=== PATIENT | female | born 1955 | race Caucasian/White ===

== ENCOUNTER → 2022-03-04 09:53 | Day surgery (SDC) | payer MEDICARE, SELFPAY ==
--- NOTE | 2022-03-03 11:25 | P.CONAN_ITS ---
Documented by User: Anita Juarez NP 03/03/22 11:27 HPI - Anesthesia Eval Consult details Narrative: 66yo F for Colonoscopy Lovenox for hx PE and Right IJ thrombo Chemo [id number] for lung ca mets PMFSH Past Medical History Medical History Anxiety COVID-19 vaccine series completed Depression Elevated cholesterol GERD (gastroesophageal reflux disease) History of chemotherapy Hx of thrombosis Lung metastases Osteopenia Sleep apnea Surgical History Surgical History H/O colonoscopy History of esophagogastroduodenoscopy (EGD) History of low anterior resection of rectum Hx of hysterectomy Hx of reduction mammoplasty Social History Social History Patient Tobacco Use Status: Former Tobacco user Quit Date: age 19's Tobacco use type: Cigarette Are you DNR?: No Advance Directives: No Advance Directives Information Provided: Yes Nutrition Risks: No Nutritional Risk Meds Allergies Allergy/AdvReac Type Severity Reaction Status Date / Time apixaban [From Eliquis] AdvReac Unknown Verified 03/04/22 11:33 Home Medications Medication Instructions Recorded Confirmed Last Taken Type bupropion HCl 300 mg 24 hr tablet, 300 mg PO QAM 03/26/21 03/04/22 03/03/22 History extended release enoxaparin 60 mg/0.6 mL 60 mg subcut DAILY 03/26/21 03/04/22 03/03/22 History subcutaneous syringe lorazepam 0.5 mg tablet 0.5 mg PO BEDTIME PRN Anxiety 03/26/21 03/04/22 03/03/22 History omeprazole 20 mg capsule,delayed 20 mg PO DAILY 03/26/21 03/04/22 03/03/22 History release ondansetron 8 mg disintegrating 8 mg PO Q8H PRN Nausea 03/26/21 03/04/22 03/03/22 History tablet Vitamin D3 03/04/22 03/04/22 Unknown History Exam Exam Date and Time: March 03, [id number] Assessment and Plan Assessment Anesthesia Assessment: Chart Reviewed Documented by User: Steve Yuan MD 03/04/22 16:02 HPI - Anesthesia Eval Consult details Narrative: 66yo F for Colonoscopy Lovenox for hx PE and Right IJ thrombo Chemo [id number] for lung ca mets Mild Hyperkalemia with K of 5.3 , patient completely asymptomatic . Case discussed with Dr Langley . He will get in touch with PCP for a follow-up . Patient counselled to immediately seek medical attention of develops any symptoms . [facility] Past Medical History Medical History Anxiety COVID-19 vaccine series completed Depression Elevated cholesterol GERD (gastroesophageal reflux disease) History of chemotherapy Hx of thrombosis Lung metastases Osteopenia Sleep apnea Family History Family history of problems with anesthesia: No Surgical History Surgical History H/O colonoscopy History of esophagogastroduodenoscopy (EGD) History of low anterior resection of rectum Hx of hysterectomy Hx of reduction mammoplasty History of Problems with Anesthesia: No Social History Social History Patient Tobacco Use Status: Former Tobacco user Quit Date: age 19's Tobacco use type: Cigarette Are you DNR?: No Advance Directives: No Advance Directives Information Provided: Yes Nutrition Risks: No Nutritional Risk Meds Allergies Allergy/AdvReac Type Severity Reaction Status Date / Time apixaban [From Eliquis] AdvReac Unknown Verified 03/04/22 11:33 Home Medications Medication Instructions Recorded Confirmed Last Taken Type bupropion HCl 300 mg 24 hr tablet, 300 mg PO QAM 03/26/21 03/04/22 03/03/22 History extended release enoxaparin 60 mg/0.6 mL 60 mg subcut DAILY 03/26/21 03/04/22 03/03/22 History subcutaneous syringe lorazepam 0.5 mg tablet 0.5 mg PO BEDTIME PRN Anxiety 03/26/21 03/04/22 03/03/22 History omeprazole 20 mg capsule,delayed 20 mg PO DAILY 03/26/21 03/04/22 03/03/22 History release ondansetron 8 mg disintegrating 8 mg PO Q8H PRN Nausea 03/26/21 03/04/22 03/03/22 History tablet Vitamin D3 03/04/22 03/04/22 Unknown History Exam Airway Mallampati Class: IV TM Dist: >3cm Neck ROM: Full Loose/Missing/Broken Teeth: Yes Heart: S1,S2 Lungs: b/l breath sounds Assessment and Plan Assessment Anesthesia Assessment: Anesthesia Plan Discussed Final Anesthetic Review Family History of Problems with Anesthesia: No History of Problems with Anesthesia: No NPO: Yes ASA Class: III Final Preanesthetic Review: Meds/Allgs Chart Reviewed, Consent Obtained/Reviewed and Anes Risks/Benef Reviewed Patient Risk: High Procedure Risk: Intermediate Anesthetic Plan Anesthetic Plan: MAC: Disposition: Standard PACU
[2022-03-04 11:27] VITALS: BMI 23.6
[2022-03-04 11:30] VITALS: BP 143/71; PULSE 89; RESP 18; TEMP 36.4; O2SAT 100
[2022-03-04] MEDS: Lactated Ringers 1,000 ML 100 ML IVCONT (11:38)
--- NOTE | 2022-03-04 11:39 | P.HPSUR_ITS ---
Pre-Procedural Eval Section A Date of Service: 03/04/22 Section B Chief Complaint: Abnormal findings on diagnostic imaging of other p Details of Present Illness: see H&P no changes Relevant Family History (Specify if Yes): No Relevant Social History: None Present Medications: see Short Stay Collaborative assessment Medical History: No relevant PMH Allergies: Allergies Allergy/AdvReac Type Severity Reaction Status Date / Time apixaban [From Eliquis] AdvReac Unknown Verified 03/04/22 11:33 Review of Systems Sugical H&P ROS: Negative: Constitution, Cardiovascular, Respiratory, Neurological, Psychiatric, Hem-Onc, Allergic/Immunologic, Gastrointestinal, G enitourinary, Musculoskeletal, Integumentary, Endocrine and Eyes/Ears/Nose/Throat Exam Surgical H&P Exam: Normal: HEENT, Normal: Heart, Normal: Lungs, Normal: Extremities, Normal: Abdomen, Normal: Skin and Normal: Neurological Plan Diagnosis/Plan: Unchanged I have reviewed the history and physical and performed a pertinent physical examination on my patient. No changes have occurred unless specified.
[2022-03-04 11:47] LABS: Hematocrit 43.3 % (37.0-47.0); Hemoglobin 13.8 g/dl (12.0-16.0); Mean Corpuscular HGB Conc 31.9 g/dl (31.0-35.0); Mean Corpuscular Hemoglobin 30.7 pg (27.0-33.0); Mean Corpuscular Volume 96.2 fL (80.0-98.0); Platelet Count 203 X10*3/uL (160-400); Red Cell Distribution Width 15.7 % (11.0-16.0); White Blood Count 4.9 X10*3/uL (4.8-10.8)
[2022-03-04 12:00] LABS: Anion Gap 15 (12-20); Blood Urea Nitrogen 8 mg/dL (9-16); Calcium 9.6 mg/dL (8.4-10.2); Carbon Dioxide 27 mmol/L (22-29); Chloride 107 mmol/L (96-108); Creatinine Clr Calc Pharmacy 61.5; Estimated Glomerular Filt Rate > 60; Glucose Fasting 100 mg/dL (60-99); Potassium 5.3 mmol/L (3.3-5.1); Sodium 144 mmol/L (135-145)
[2022-03-04 13:27] VITALS: BP 115/68; PULSE 89; RESP 15; TEMP 36.4; O2SAT 99
--- NOTE | 2022-03-04 13:27 | PM.OP ---
Brief Operative Note Date of Service: 03/04/22 Pre-op diagnosis: abnl ct scan colon Post-op diagnosis: same Procedure: colonoscopy Surgeon: Nino Langley Anesthesia: MAC Was an Test Data Developer used for this Procedure?: No Estimated blood loss (mL): 2 Pathology: other Condition: stable Disposition: PACU
[2022-03-04 13:42] VITALS: BP 121/62; PULSE 86; RESP 16; O2SAT 100
[2022-03-04 13:57] VITALS: BP 136/58; PULSE 85; RESP 16; TEMP 36.4; O2SAT 100
--- NOTE | 2022-03-05 01:55 | OP_ITS ---
SURGEON: Nino Langley MD INDICATIONS: Abnormal CT scan of the colon. PREOPERATIVE DIAGNOSIS: POSTOPERATIVE DIAGNOSIS: PROCEDURE PERFORMED: Colonoscopy to the terminal ileum with biopsy. ESTIMATED BLOOD LOSS: COMPLICATIONS: ANESTHESIA: Monitored anesthesia care. ASSISTANTS: SPECIMENS: DATE: 03/05/22 DESCRIPTION OF PROCEDURE: History and physical performed. The risks and benefits of the procedure were explained to the patient. Informed consent was obtained. The patient was placed in the left lateral decubitus position. A digital rectal exam was performed and was found to be normal. The Olympus pediatric video colonoscope was introduced into the rectum and advanced to the cecum without difficulty. The cecum was identified by transillumination, palpation, and identification of the ileocecal valve. Examination was performed. The scope was removed. She tolerated the procedure well and was taken to the recovery area in stable condition. FINDINGS: The terminal ileum was examined and appeared normal. The visualized colonic mucosa was normal. No mass was identified. No mucosal abnormalities were seen in the right colon or transverse colon. Biopsies were obtained randomly in the right colon. The remainder of the visualized colonic mucosa was normal. There was a low anterior anastomosis from her prior resection at about 10 cm. Retroflexed examination in the rectum was not possible due to surgical changes. The surgical anastomosis was widely patent. IMPRESSION: Normal colonoscopy. RECOMMENDATION: 1. Follow up the biopsy results. 2. Repeat colonoscopy in 5 years. MD JAYLAN Hercules/DIANA / [id number] MTDD
--- NOTE | 2022-03-10 08:23 | PM.EVENT ---
Event Note Date of Service: 03/04/22 Event Note: The correct procedure date is 03/04/22.
== END | disposition home or self-care (01) ==
PROVIDERS: Nurse Practitioner; PCP Internal Medicine Geriatric Medicine; Visit Provider Internal Medicine Gastroenterology
PROC: 0DJD8ZZ Inspection of Lower Intestinal Tract, Via Natural or Artificial Opening Endoscopic (ICD-10-PCS; CPT 45378; principal; 2022-03-04 11:30)
DX: R93.3 Abnormal findings on diagnostic imaging of other parts of digestive tract (principal); Z85.038 Personal history of other malignant neoplasm of large intestine; Z90.49 Acquired absence of other specified parts of digestive tract; C78.02 Secondary malignant neoplasm of left lung; Z92.21 Personal history of antineoplastic chemotherapy; I82.C11 Acute embolism and thrombosis of right internal jugular vein; Z79.02 Long term (current) use of antithrombotics/antiplatelets; G47.33 Obstructive sleep apnea (adult) (pediatric); E78.5 Hyperlipidemia, unspecified; K21.9 Gastro-esophageal reflux disease without esophagitis; M85.80 Other specified disorders of bone density and structure, unspecified site; F32.A Depression, unspecified; F41.1 Generalized anxiety disorder; Z79.899 Other long term (current) drug therapy; Z88.8 Allergy status to other drugs, medicaments and biological substances
CPT/HCPCS: 45380; 36415; 80048; 85027; 88305; J2370